=== PATIENT | female | born 1965 | race Caucasian/White ===

== ENCOUNTER → 2017-01-20 | Outpatient (CLI) | payer BC ==
[~2017-01-20] MED LIST: ARNUITY ELLIP200 MCG INH; BUSPAR 5MG TABLE5 MG PO; CARDIZEM CD180 MG PO; DIOVAN HCT 3201 EAC1 PO; DIOVAN320 MG PO; DULERA 200 MCG8.8 GM INH; ESCITALOPRAM OXA5 MG PO; GLUCOPHAGE500 MG PO; IPRAT-ALBUT 0.5-3 ML INH; LASIX20 MG PO; MONTELUKAST SOD10 MG PO; PREDNISONE 20 M20 MG PO; PROAIR HFA8.5 GM INH; PROTONIX40 MG PO; TRICOR 145 MG145 MG PO; ZANTAC150 MG PO
[2017-01-20 14:34] LABS: BUN/CREATININE RATIO 32 (0-10)
== END ==
LOC: LAB 13:30
PROVIDERS: Nurse Practitioner Family
DX: J45.42 Moderate persistent asthma with status asthmaticus (principal)
CPT/HCPCS: 36415; 71020; 80048

== ENCOUNTER → 2020-12-14 | Outpatient (CLI) | payer BC ==
[~2020-12-14] VITALS: Ht 157.5 cm; Wt 121.6 kg
[~2020-12-14] MED LIST changes: +ALBUTEROL2.5 MG/3 M INH; +AZITHROMYCIN250 MG PO; +BREO ELLIPTA 11 EACH INH; -BUSPAR 5MG TABLE5 MG PO; +BUSPIRONE HCL5 MG PO; +COZAAR100 MG PO; -ESCITALOPRAM OXA5 MG PO; +FARXIGA10 MG PO; +FASENRA PE30 MG/1 ML SQ; +JANUVIA25 MG PO; +JANUVIA50 MG PO; +LASIX TAB 20 MG20 MG PO; +LEXAPRO TAB 1010 MG PO; +LOTENSIN TAB 1010 MG PO; +OMEPRAZOLE40 MG PO; +OMNICEF 300 MG300 MG PO; +PREDNISONE 10 M10 MG PO; +PREDNISONE 50 M50 MG PO; -PROAIR HFA8.5 GM INH; +QVAR REDIHALER INH; +SPIRIVA RESPIMAT4 GM INH; +ZITHROMAX250 MG PO
== END ==
LOC: OPSV 10:54
DX: J45.41 Moderate persistent asthma with (acute) exacerbation (principal)
CPT/HCPCS: J0517

== ENCOUNTER → 2021-03-23 | Outpatient (CLI) | payer BC ==
[~2021-03-23] VITALS: Ht 157.5 cm; Wt 121.6 kg
== END ==
LOC: OPSV 12:00
DX: J45.41 Moderate persistent asthma with (acute) exacerbation (principal)
CPT/HCPCS: 96372; J0517

== ENCOUNTER → 2021-05-19 | Outpatient (CLI) | payer BC | LOC: OPSV 05-18 13:00 | DX: J45.41 Moderate persistent asthma with (acute) exacerbation (principal) | CPT/HCPCS: 96372; J0517 ==

== ENCOUNTER → 2021-07-14 | Outpatient (CLI) | payer BC ==
[~2021-07-14] VITALS: Ht 157.5 cm; Wt 121.6 kg
== END ==
LOC: OPSV 13:00
DX: J45.901 Unspecified asthma with (acute) exacerbation (principal)
CPT/HCPCS: 96372; J0517

== ENCOUNTER → 2021-09-08 | Outpatient (CLI) | payer BC ==
[~2021-09-08] VITALS: Ht 157.5 cm; Wt 121.6 kg
== END ==
LOC: OPSV 12:00
DX: J45.41 Moderate persistent asthma with (acute) exacerbation (principal)
CPT/HCPCS: 96372; J0517

== ENCOUNTER → 2021-11-08 | Outpatient (CLI) | payer BC ==
[~2021-11-08] VITALS: Ht 157.5 cm; Wt 121.6 kg
== END ==
LOC: OPSV 10-06 11:00
DX: J45.40 Moderate persistent asthma, uncomplicated (principal); J45.901 Unspecified asthma with (acute) exacerbation
CPT/HCPCS: 96372; J0517

== ENCOUNTER → 2022-01-07 | Outpatient (CLI) | payer BC ==
[~2022-01-07] VITALS: Ht 157.5 cm; Wt 121.6 kg
== END ==
LOC: OPSV 01-03 13:00
DX: J45.40 Moderate persistent asthma, uncomplicated (principal)
CPT/HCPCS: 96372; J0517

== ENCOUNTER → 2022-07-08 | Outpatient (CLI) | payer BC ==
[2022-07-08 13:08] LABS: BUN/CREATININE RATIO 36 (0-10)
== END ==
LOC: LAB 11:31
PROVIDERS: Family Medicine
DX: E78.2 Mixed hyperlipidemia (principal); J30.2 Other seasonal allergic rhinitis; N39.41 Urge incontinence; R73.9 Hyperglycemia, unspecified; Z71.3 Dietary counseling and surveillance
CPT/HCPCS: 36415; 80053; 80061; 83036